=== PATIENT | male | born 1995 | race African-American/Black ===

== ENCOUNTER 2016-10-18 11:11 | Emergency (ER) | payer OTHER ==
[~2016-10-18] VITALS: Ht 182.9 cm; Wt 100.0 kg
[~2016-10-18 11:11] MED LIST: BACT800T5 PO; IBUP800T23 PO
[2016-10-18 11:12] VITALS: BP 148/68; PULSE 75; RESP 12; TEMP 98.3; O2SAT 99
[2016-10-18] MEDS ORDERED: IBUP800T23 PO (11:57)
--- NOTE | 2016-10-18 11:57 | PD ---
HPI Chief Complaint: Musculoskeletal Complaint Time Seen by Provider: 11:54 Travel History International Travel<30 days: No Contact w/Intl Traveler<30days: No Traveled to known affect area: No History of Present Illness HPI 21-year-old male presents to the emergency department for evaluation a right quadricep pain. Patient states he was doing sprints when he felt a pop. He states the pain has been persistent since then, exacerbated with ambulation. Denies any bruising or swelling. States he is able to move his leg, flex and extend his knee, flex and extend his hip but extension of the knee and weightbearing are painful. He has not taken anything for the pain. He has been applying ice. He is otherwise healthy. He has no other symptoms to report. 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 HEAD: Atraumatic. Normocephalic. EYES: Pupils equal and round. No scleral icterus. No injection or drainage. ENT: No nasal bleeding or discharge. Mucous membranes pink and moist. NECK: Trachea midline. No JVD. CARDIOVASCULAR: Regular rate and rhythm. No murmur appreciated. RESPIRATORY: No accessory muscle use. Clear to auscultation. Breath sounds equal bilaterally. GASTROINTESTINAL: Abdomen soft, non-tender, nondistended. Hepatic and splenic margins not palpable. MUSCULOSKELETAL: No obvious deformities. No clubbing. No cyanosis. No edema. Tenderness also to palpation over the mid and distal aspect of the right quadricep. No bruising. No swelling. Distal pulses are palpable. Patient fully flex and extend the knee but reports pain with doing so.. NEUROLOGICAL: Awake and alert. No obvious cranial nerve deficits. Motor grossly within normal limits. Normal speech. PSYCHIATRIC: Appropriate mood and affect; insight and judgment normal. Data Data Last Documented VS Vital Signs Date Time Temp Pulse Resp B/P Pulse Ox O2 Delivery O2 Flow Rate FiO2 10/18/16 11:12 98.3 75 12 148/68 99 Room Air Orders Femur (Ap & Lat/2vws) (10/18/16 ) Crutches (10/18/16 12:48) MDM Medical Decision Making Medical Screen Exam Complete: Yes Emergency Medical Condition: Yes Medical Record Reviewed: Yes Differential Diagnosis Quadricep tear versus rupture versus sprain versus tendon rupture versus stress fracture of the femur Narrative Course 21-year-old male presents to emergency department for evaluation of right quadricep pain. Patient appears overall well without distress. He does have tenderness also to palpation of the mid to distal quadricep. X-ray imaging of the femur shows no acute bony abnormality. Juan Alberto wrap is applied, patient is provided crutches, and counseled on care. He is encouraged to seek orthopedic evaluation for further evaluation. He agrees with this plan of care and will return immediately with any acute worsening of symptoms. Diagnosis Primary Impression: Unspecified injury of right quadriceps muscle, fascia and tendon, initial encounter Referrals: Orthopedist Primary Care Physician Patient Instructions: General Instructions, Quadriceps Exercises (GEN) Additional Instructions: Ice, compression, and elevate Nonweightbearing until cleared by industrial specialist Return immediately to the emergency department with any acute worsening of symptoms Med/Other Pt SpecificInfo: Prescription(s) given Scripts Ibuprofen 800 Mg [id number] Mg PO Q8H PRN (Pain/Inflammation) #30 TAB Ref 0 Prov:Bell Infante 10/18/16 Disposition: 01 DISCHARGE HOME Condition: Stable Bell Infante Oct 18, 2016 11:57
--- NOTE | 2016-10-18 13:58 | RADRPT ---
EXAM DATE/TIME: 10/18/2016 12:38 [facility] COMPARISON: No previous studies available for comparison. INDICATIONS : Right femur pain. MEDICAL HISTORY : None. SURGICAL HISTORY : None. ENCOUNTER: Initial ACUITY: 1 day PAIN SCORE: 6/10 LOCATION: Right Femur. FINDINGS: Two view examination of the right femur demonstrates no evidence of fracture or dislocation. Bony mi neralization is normal. The soft tissue structures are intact. CONCLUSION: Unremarkable examination of the right femur. Ender Linder MD on October 18, 2016 at 13:55 Board Certified Radiologist. This report was verified electronically.
== END 2016-10-18 13:52 | disposition home or self-care (01) ==
LOC: NETRI 11:11
DX: S76.191A Other specified injury of right quadriceps muscle, fascia and tendon, initial encounter (principal); X58.XXXA Exposure to other specified factors, initial encounter; Y93.02 Activity, running
CPT/HCPCS: 73552; 99283; E0113